=== PATIENT | female | born 1970 | race Caucasian/White ===

== ENCOUNTER 2022-05-03 17:16 | Emergency (ER) | payer SELFPAY ==
[~2022-05-03] VITALS: Ht 167.7 cm; Wt 104.0 kg
[2022-05-03] MEDS ORDERED: dexAMETHasone 6 MG TAB (DECADRON) PO SCH (18:00)
[2022-05-03] MEDS ORDERED: IBUP-1773 PO (18:00)
[2022-05-03] MEDS ORDERED: IBUPROFEN 600 MG (MOTRIN) TAB PO ONE (18:00)
--- NOTE | 2022-05-03 18:00 | ED EENT ---
History of Present Illness General Chief Complaint: Oral/Throat Problems Stated Complaint: SOB, DIFFICULTY SWALLOWING Nursing Triage Note: PT TO [facility] WITH C/O DIFF SWOLLOWING X3 DAYS. PT STATES SHE HAS BEEN ABLE TO SWOLLOW LIQUIDS STILL Source: patient Exam Limitations: no limitations History of Present Illness Date Seen by Provider: May 03, 2022 Time Seen by Provider: 17:50 Initial Comments Patient is a 52-year-old female who presents to the emergency department via EMS for evaluation of difficulty swallowing and throat pain for the last 3 to 4 days. Patient states she has still been able to swallow liquids without issue although there is pain. Denies any drooling, shortness of breath, chest pain, stiff neck, inability to fully open the mouth. She has not been taking any medications for the symptoms. Endorses a history of esophageal stricture which required EGD and stretching. This was several years ago per patient report. Patient states she had a fever a few days ago but none since. Allergies and Home Medications Allergies Coded Allergies: Penicillins (Verified Allergy, Unknown, 05/03/22) aspirin (Verified Allergy, Unknown, 05/03/22) diazepam (Verified Allergy, Unknown, 05/03/22) methylprednisolone (Verified Allergy, Unknown, Anaphylaxis, 05/03/22) Patient Home Medication List Home Medication List Reviewed: Yes Review of Systems Review of Systems Constitutional: no symptoms reported Eyes: No Symptoms Reported Ears: No Symptoms Reported Nose: no symptoms reported Mouth: no symptoms reported Throat: see HPI, pain, painful swallowing Respiratory: no symptoms reported Cardiovascular: no symptoms reported Gastrointestinal: no symptoms reported Musculoskeletal: no symptoms reported Skin: no symptoms reported Neurological: No Symptoms Reported Hematologic/Lymphatic: No Symptoms Reported Immunological/Allergic: no symptoms reported Past [id number] Hx Patient Social History Tobacco Use?: Yes Substance use?: Yes Substance type: Marijuana Alcohol Use?: No Pt feels they are or have been: No Immunizations Up To Date Influenza Vaccine Up-to-Date: No; Not Current Past Medical History Surgery/Hospitalization HX: GERD, THYROID, HLD THROAT STRETCH, FABI, , TUBAL Physical Exam Vital Signs Vital Signs - First Documented 05/03/22 17:20 Temp 36.3 Pulse 86 Resp 16 B/P (MAP) 135/65 (88) Height, Weight, BMI Height: '" Weight: lbs. oz. kg; 36.00 BMI Method: General Appearance: WD/WN, no apparent distress Mouth/Throat: normal mouth inspection; No excessive drooling, No pharynx swelling, No pharynx tenderness Neck: full range of motion, supple, normal inspection, lymphadenopathy (R), lymphadenopathy (L) Cardiovascular: regular rate, rhythm Respiratory: chest non-tender, lungs clear, normal breath sounds, no respiratory distress, no accessory muscle use Gastrointestinal: normal bowel sounds, non tender, soft, no organomegaly, no pulsatile mass Neurologic/Psychiatric: no motor/sensory deficits, alert, normal mood/affect, oriented x 3 Skin: normal color, warm/dry Progress/Results/Core Measures Results/Orders Lab Results Laboratory Tests Test 05/03/22 17:28 Range/Units Group A Streptococcus Screen NEGATIVE NEGATIVE My Orders Orders - JUAN ANTONIO BETANCUR APRN Rapid Strep A Screen (05/03/22 17:28) Ibuprofen Tablet (Motrin Tablet) (05/03/22 18:00) Vital Signs/I&O 05/03/22 17:20 Temp 36.3 Pulse 86 Resp 16 B/P (MAP) 135/65 (88) Blood Pressure Mean: 88 Progress Progress Note : Progress Note Patient is nontoxic and well-hydrated on exam. No adventitious lung sounds or obstructive breathing noted. Vital signs reassuring. Patient is tolerating oral secretions without issue. No muffled voice noted. No trismus appreciated. Patient has full range of motion of the neck. Rapid strep ordered. Rapid strep was negative. Patient does have some bilateral lymphadenopathy noted to the anterior cervical lymph nodes. Low suspicion for food bolus given patient is unable to provide an exact onset of symptoms following eating. Patient was able to tolerate oral liquids well in the emergency department. Viral pharyngitis remains a possibility. Patient verbalizes an allergy to methylprednisolone but states she has tolerated oral prednisone without issue. Patient was given a dose of ibuprofen orally in the emergency department as well as a dose of dexamethasone orally. I informed patient this should hopefully help with the pain discomfort in her throat for the next few days as the medication has a long half-life. I encouraged her to follow-up with her regular doctor as well as general surgery to see if EGD would be indicated. Strict return precautions for urgent symptomology discussed. Patient verbalized understanding. Departure Impression Primary Impression: Throat pain Disposition: HOME, SELF-CARE Condition: Stable Departure-Patient Inst. Decision time for Depature: 18:00 Referrals: [facility]/SUZI PRIETO BRETT D DO Patient Instructions: Sore Throat, Adult ED Scripts Ibuprofen (Ibuprofen) 600 Mg Tablet 600 MG PO Q6H PRN for PAIN-MILD for 5 Days, #20 TAB 0 Refills Prov: JUAN ANTONIO BETANCUR APRN 05/03/22 JUAN ANTONIO BETANCUR APRN May 03, 2022 18:00
[2022-05-03 18:16] VITALS: BP 130/60
== END 2022-05-03 18:19 | disposition home or self-care (01) ==
LOC: ER 17:19
DX: R07.0 Pain in throat (principal); R59.1 Generalized enlarged lymph nodes; Z88.6 Allergy status to analgesic agent; Z88.8 Allergy status to other drugs, medicaments and biological substances; Z28.310 Unvaccinated for COVID-19
CPT/HCPCS: 87430; 99283

== ENCOUNTER → 2022-06-20 | Outpatient (CLI) | payer OTHER ==
[~2022-06-20] MED LIST: IBUP-1773 PO; RT-ALBUTEROL SULF 2.5 MG/3 ML PRE-MIX VIAL INH ONE
== END ==
LOC: RT 08:42
PROVIDERS: ATTEND Nurse Practitioner Family
DX: J42 Unspecified chronic bronchitis (principal)
CPT/HCPCS: 94060; 94726; 94729